=== PATIENT | male | born 2000 | race African-American/Black ===

== ENCOUNTER 2022-01-19 12:09 | Emergency (ER) | payer BC ==
[2022-01-19] MEDS: DUONEB 0.5-3 MG/3 ml Neb IH ONE (12:10)
--- NOTE | 2022-01-19 12:19 | ERPHSYRPT ---
- History of Present Illness Time Seen by Provider: 01/19/22 12:15 Source: patient Exam Limitations: clinical condition Physician History: This is a 21-year-old -[place] male who has a history of asthma and is supposed to be taking albuterol inhaler which she is out of as well as using albuterol nebulizer treatment but is out of that medication as well. Patient states he does have Symbicort and he is using that as prescribed. However, yesterday, he noticed that he did have some worsening symptoms of shortness of breath. There is a roommate that has "cold". The patient states he has not been coughing. He has no chest pain. He has no abdominal pain. He is not had any fevers. He states there is no specific trigger that brought this on. His symptoms today have worsened. Timing/Duration: yesterday Activities at Onset: none Severity of Dyspnea-Max: moderate Severity of Dyspnea-Current: moderate Possible Cause: occasional episodes Modifying Factors: Improves With: other (Nothing has improved his symptoms prior to arrival) Associated Symptoms: wheezing, No chest pain/discomfort Allergies/Adverse Reactions: No Known Drug Allergies Allergy (Unverified 01/19/22 12:12) Home Medications: Albuterol 2.5 mg/3 ml Neb [Proventil 2.5 mg/3 ml Neb] 2.5 mg IH QID 01/19/22 [History] Budesonide 0.5 mg/2 ml [Pulmicort 0.5 mg/2 ml Respules] 0.5 mg IH DAILY 01/19/22 [History] Travel Risk - International Travel Have you traveled outside of the country in past 3 weeks: No - Coronavirus Screening Are you exhibiting any of the following symptoms?: Yes Symptoms: Shortness of Breath Close contact with a COVID-19 positive Pt in past 14-21 Days: No - Review of Systems Constitutional: No Symptoms Eyes: No Symptoms Ears, Nose, & Throat: No Symptoms Respiratory: Dyspnea, Wheezing Cardiac: No Symptoms Abdominal/Gastrointestinal: No Symptoms Genitourinary Symptoms: No Symptoms Musculoskeletal: No Symptoms Skin: No Symptoms Neurological: No Symptoms Psychological: No Symptoms Endocrine: No Symptoms Hematologic/Lymphatic: No Symptoms Immunological/Allergic: No Symptoms All Other Systems: Reviewed and Negative - Past Medical History Pertinent Past Medical History: Yes Respiratory History: Asthma - Past Surgical History Past Surgical History: Yes Musculoskeletal: Orthopedic Surgery Other Surgical History: NECK - Social History Drug Use: none - Nursing Vital Signs Nursing Vital Signs: Initial Vital Signs Pulse Rate 78 01/19/22 12:10 Respiratory Rate 14 01/19/22 12:10 O2 Sat by Pulse Oximetry 93 L 01/19/22 12:10 Pain Scale Pain Intensity 4 - Physical Exam General Appearance: mild distress, alert, anxiety Eye Exam: PERRL/EOMI, eyes nml inspection Ears, Nose, Throat Exam: hearing grossly normal, normal ENT inspection, normal pharynx Neck Exam: normal inspection, non-tender, supple, full range of motion Respiratory Exam: respiratory distress, airway intact, wheezing (Mild) Cardiovascular/Chest Exam: tachycardia Abdominal/Gastrointestinal Exam: No tenderness Rectal Exam: not done Extremity Exam: non-tender, normal range of motion, normal inspection Neurologic Exam: alert, oriented x 3, cooperative, physicians and surgeons II-XII nml as tested, normal mood/affect, nml cerebellar function, nml station & gait, sensation nml Skin Exam: normal color, warm, dry Lymphatic Exam: No adenopathy SpO2 Interpretation: normal O2 Delivery: Room Air - Course Nursing assessment & vital signs reviewed: Yes Ordered Tests: Active Orders 24 hr Category Date Time Status Acid Tester STAT Care 01/19/22 12:19 Active IV Insertion STAT Care 01/19/22 12:19 Active Oxygen-ED Only Nasal Cannula 2 lpm Care 01/19/22 12:19 Active CHEST 1 VIEW (PORTABLE) Stat Exams 01/19/22 12:19 Completed CBC W DIFF Stat Lab 01/19/22 12:45 Completed CMP Stat Lab 01/19/22 12:45 Completed D-DIMER QUANTITATIVE Stat Lab 01/19/22 12:45 Completed Respiratory Therapy Assessment DAILY RT 01/19/22 12:33 Active Medication Summary Discontinued Medications Generic Name Dose Route Start Last Admin Trade Name Freq PRN Reason Stop Dose Admin Albuterol/Ipratropium 3 ml 01/19/22 12:19 01/19/22 12:10 Ipratropium/Albuterol Sulfate 3 Ml Ampul.Neb IH 01/19/22 12:20 3 ml STAT ONE Administration Methylprednisolone Sodium 0 mg 01/19/22 12:19 01/19/22 12:40 Succinate 125 mg/ Sterile IV 01/19/22 12:20 125 mg Water 2 ml STAT ONE Administration Methylprednisolone Sodium Succinate Confirm 01/19/22 12:35 Methylprednis Sod Succ 125 Mg/2 Ml Vial Administered 01/19/22 12:36 Dose 125 mg .ROUTE .[email or web address] Sterile Water Confirm 01/19/22 12:35 Water For Injection,Sterile 10 Ml Vial Administered 01/19/22 12:36 Dose 10 ml IJ .STK-MED ONE Lab/Rad Data: Laboratory Result Diagrams 01/19/22 12:45 01/19/22 12:45 Laboratory Results 01/19/22 01/19/22 01/19/22 Range/Units 13:00 12:45 12:45 WBC (4.0-10.5) x10^3/uL RBC (4.1-5.6) x10^6/uL Hgb (12.5-18.0) g/dL Hct (42-50) % MCV (78-100) fL MCH (26-32) pg MCHC (32-36) g/dL RDW (11.5-14.0) % Plt Count (150-450) x10^3/uL MPV (7.5-11.0) fL Gran % (36.0-66.0) % Immature Gran % (Auto) (0.00-0.4) % Nucleat RBC Rel Count (0.00-0.1) % Eos # (Auto) (0-0.5) x10^3/uL Immature Gran # (Auto) (0.00-0.03) x10^3u/L Absolute Lymphs (auto) (1.0-4.6) x10^3/uL Absolute Monos (auto) (0.0-1.3) x10^3/uL Absolute Nucleated RBC (0.00-0.01) x10^3u/L Lymphocytes % (24.0-44.0) % Monocytes % (0.0-12.0) % Eosinophils % (0.00-5.0) % Basophils % (0.0-0.4) % Absolute Granulocytes (1.4-6.9) x10^3/uL Basophils # (0-0.4) x10^3/uL D-Dimer 0.28 (0.0-0.50) mg/L Sodium 138 (137-145) mmol/L Potassium 4.5 (3.5-5.1) mmol/L Chloride 102 (98-107) mmol/L Carbon Dioxide 26 (22-30) mmol/L Anion Gap 14.2 (5-15) MEQ/L BUN 12 (9-20) mg/dL Creatinine 1.05 (0.66-1.25) mg/dL Estimated GFR > 60.0 ML/MIN Glucose 123 H (74-106) mg/dL Calcium 9.3 (8.4-10.2) mg/dL Total Bilirubin 0.90 (0.2-1.3) mg/dL AST 72 H (17-59) U/L ALT 158 H (0-50) U/L Alkaline Phosphatase 140 H (38-126) U/L Serum Total Protein 8.2 (6.3-8.2) g/dL Albumin 4.9 (3.5-5.0) g/dL Influenza Type A Ag NEGATIVE (NEGATIVE) Influenza Type B Ag NEGATIVE (NEGATIVE) RSV (PCR) NEGATIVE (Negative) SARS-CoV-2 (PCR) NEGATIVE (NEGATIVE) 01/19/22 Range/Units 12:45 WBC 5.0 (4.0-10.5) x10^3/uL RBC 6.66 H (4.1-5.6) x10^6/uL Hgb 15.2 (12.5-18.0) g/dL Hct 48.9 (42-50) % MCV 73.4 L (78-100) fL MCH 22.8 L (26-32) pg MCHC 31.1 L (32-36) g/dL RDW 15.4 H (11.5-14.0) % Plt Count 198 (150-450) x10^3/uL MPV 12.4 H (7.5-11.0) fL Gran % 59.8 (36.0-66.0) % Immature Gran % (Auto) 1.4 H (0.00-0.4) % Nucleat RBC Rel Count 0.0 (0.00-0.1) % Eos # (Auto) 0.59 H (0-0.5) x10^3/uL Immature Gran # (Auto) 0.07 H (0.00-0.03) x10^3u/L Absolute Lymphs (auto) 0.92 L (1.0-4.6) x10^3/uL Absolute Monos (auto) 0.41 (0.0-1.3) x10^3/uL Absolute Nucleated RBC 0.00 (0.00-0.01) x10^3u/L Lymphocytes % 18.4 L (24.0-44.0) % Monocytes % 8.2 (0.0-12.0) % Eosinophils % 11.8 H (0.00-5.0) % Basophils % 0.4 (0.0-0.4) % Absolute Granulocytes 3.00 (1.4-6.9) x10^3/uL Basophils # 0.02 (0-0.4) x10^3/uL D-Dimer (0.0-0.50) mg/L Sodium (137-145) mmol/L Potassium (3.5-5.1) mmol/L Chloride (98-107) mmol/L Carbon Dioxide (22-30) mmol/L Anion Gap (5-15) MEQ/L BUN (9-20) mg/dL Creatinine (0.66-1.25) mg/dL Estimated GFR ML/MIN Glucose (74-106) mg/dL Calcium (8.4-10.2) mg/dL Total Bilirubin (0.2-1.3) mg/dL AST (17-59) U/L ALT (0-50) U/L Alkaline Phosphatase (38-126) U/L Serum Total Protein (6.3-8.2) g/dL Albumin (3.5-5.0) g/dL Influenza Type A Ag (NEGATIVE) Influenza Type B Ag (NEGATIVE) RSV (PCR) (Negative) SARS-CoV-2 (PCR) (NEGATIVE) - Progress Progress: improved, re-examined Air Movement: fair Progress Note: 01/19/22 12:43 Chest x-ray shows no acute cardiopulmonary process Blood Culture(s) Obtained: Yes Antibiotics given: No Counseled pt/family regarding: lab results, diagnosis, need for follow-up, rad results - Departure Departure Disposition: Home Clinical Impression: Acute asthma exacerbation Condition: Stable Critical Care Time: No Additional Instructions: Take your medications as prescribed. Avoid exposure to any type of smoke. Follow-up with your primary prescribing provider tomorrow by phone to make a follow-up appointment for further evaluation and management Prescriptions: Prednisone 10 mg [Deltasone 10 mg] 10 mg PO TID #12 tablet Albuterol 2.5 mg/3 ml Neb [Proventil 2.5 mg/3 ml Neb] 2.5 mg IH Q6H #25 Albuterol 8 gm Mdi Hfa [Ventolin Hfa MDI] 8 gm IH Q4H #1
[2022-01-19] MEDS ORDERED: solu-MEDROL ONE (12:35)
[2022-01-19] MEDS ORDERED: Sterile H2O 10 ml IJ ONE (12:35)
[2022-01-19] MEDS: solu-MEDROL 125 MG, Sterile H2O 10 ml 2 ML IV ONE ×2 (12:40)
--- NOTE | 2022-01-19 12:41 | XRAY ---
Indication: Short of breath and wheezing. Comparison: None Portable chest demonstrates normal heart, lungs, and bony thorax.
[2022-01-19 13:01] LABS: Basophil (Absolute #) 0.02 x10^3/uL (0-0.4); Eosinophil % 11.8 % (0.00-5.0); Eosinophil (Absolute #) 0.59 x10^3/uL (0-0.5); Hematocrit 48.9 % (42-50); Hemoglobin 15.2 g/dL (12.5-18.0); Lymphocyte (Absolute #) 0.92 x10^3/uL (1.0-4.6); Lymphocytes % 18.4 % (24.0-44.0); Mean Cell Volume 73.4 fL (78-100); Mean Corpuscular Hemoglobin 22.8 pg (26-32); Mean Corpuscular Hgb Concent. 31.1 g/dL (32-36); Mean Platelet Volume 12.4 fL (7.5-11.0); Monocyte (Absolute #) 0.41 x10^3/uL (0.0-1.3); Monocytes % 8.2 % (0.0-12.0); Neutrophil % 59.8 % (36.0-66.0); Platelet Count 198 x10^3/uL (150-450); Red Blood Count 6.66 x10^6/uL (4.1-5.6); Red Cell Distribution Width 15.4 % (11.5-14.0)
[2022-01-19 13:15] LABS: ALBUMIN 4.9 g/dL (3.5-5.0); ALKALINE PHOSPHATASE 140 U/L (38-126); ANION GAP 14.2 MEQ/L (5-15); BLOOD UREA NITROGEN 12 mg/dL (9-20); CHLORIDE 102 mmol/L (98-107); Calcium 9.3 mg/dL (8.4-10.2); Carbon Dioxide 26 mmol/L (22-30); Creatinine 1 1.05 mg/dL (0.66-1.25); EST GLOMERULAR FILTRATION RATE > 60.0 ML/MIN; Glucose 123 mg/dL (74-106); Potassium 4.5 mmol/L (3.5-5.1); SGOT/AST 72 U/L (17-59); SGPT/ALT 158 U/L (0-50); SODIUM 138 mmol/L (137-145); Total Protein 8.2 g/dL (6.3-8.2)
[2022-01-19 13:41] LABS: INFLUENZA A NEGATIVE (NEGATIVE); INFLUENZA B NEGATIVE (NEGATIVE); RESPIRATORY SYNCTIAL VIRUS NEGATIVE (Negative); SARS-CoV-2 Xpert Express NEGATIVE (NEGATIVE)
[2022-01-19 14:01] VITALS: BP 150/79; PULSE 71; O2SAT 100
[2022-01-19 14:49] LABS: Slide Review 1 YES
== END 2022-01-19 14:09 | disposition home or self-care (01) ==
LOC: ED 12:09
DX: J45.901 Unspecified asthma with (acute) exacerbation (principal); Z79.52 Long term (current) use of systemic steroids; Z79.899 Other long term (current) drug therapy
CPT/HCPCS: 0241U; 36000; 36415; 71045; 80053; 85025; 85379; 93041; 94640; 96374; 99284; J2930; A9270-GY